=== PATIENT | female | born 1960 | race Caucasian/White ===

== ENCOUNTER 2017-11-16 22:22 | Emergency (ER) | payer OTHER ==
--- NOTE | 2017-11-16 23:19 | EDM.PDOC ---
ED HPI GENERAL MEDICAL PROBLEM - General Chief Complaint: Neurological Problem Stated Complaint: LIGHT HEADED DIZZY Time Seen by Provider: 11/16/17 22:25 Source of Information: Reports: Patient History Limitations: Reports: No Limitations - History of Present Illness INITIAL COMMENTS - FREE TEXT/NARRATIVE: This is a 57-year-old female. She states that she has fumes and her living quarters that it been bothering her for the last 1-2 weeks and apparently it got worse this evening and she comes to the ER for evaluation. She has an air purifier that sounds like it makes ozone and she's been smelling bad as well. This evening she started feeling lightheaded and dizzy and she comes to the ER for evaluation. She doesn't know if she has any open flames in her home. She doesn't know if she uses natural gas for her appliances. She feels confused but she is talking coherently and acting normal. She denies any fever or chills no cough no congestion no nausea vomiting or diarrhea. - Related Data Allergies Allergy/AdvReac Type Severity Reaction Status Date / Time Penicillins Allergy Hives Verified 11/16/17 22:33 Home Meds: Home Meds . [No Known Home Meds] 11/16/17 [History] Past Medical History [employer] History: Reports: Musculoskeletal History: Reports: Back Pain, Chronic, Neck Pain, Chronic - Past Surgical History GI Surgical History: Reports: Appendectomy Female Surgical History: Reports: Tubal Ligation Social & Family History - Family History Family Medical History: Noncontributory - Tobacco Use Smoking Status *Q: Current Every Day Smoker Years of Tobacco use: 45 Packs/Tins Daily: 1 - Caffeine Use Caffeine Use: Reports: None - Recreational Drug Use Recreational Drug Use: No ED ROS GENERAL - Review of Systems Review Of Systems: See Below Constitutional: Denies: Fever, Chills HEENT: Reports: No Symptoms Respiratory: Reports: Shortness of Breath. Denies: Wheezing, Cough Cardiovascular: Denies: Chest Pain Endocrine: Reports: No Symptoms GI/Abdominal: Reports: No Symptoms : Reports: No Symptoms Musculoskeletal: Reports: No Symptoms Skin: Reports: No Symptoms Neurological: Reports: Confusion, Dizziness. Denies: Trouble Speaking, Difficulty Walking Psychiatric: Reports: Anxiety Hematologic/Lymphatic: Reports: No Symptoms ED EXAM, NEURO - Physical Exam Exam: See Below Exam Limited By: No Limitations General Appearance: Alert, WD/WN Eye Exam: Bilateral Eye: Normal Inspection Ears: Normal External Exam Nose: Normal Inspection Throat/Mouth: Normal Inspection, Normal Lips, Normal Voice, No Airway Compromise Head Exam: Normocephalic Neck: Supple Respiratory/Chest: No Respiratory Distress, Lungs Clear, Normal Breath Sounds Cardiovascular: Regular Rate, Rhythm, No Murmur GI/Abdominal: Soft Neurological: Alert, CN II-XII Intact, Oriented x 3 Back Exam: Normal Inspection, Full Range of Motion Extremities: Normal Inspection, Normal Range of Motion Psychiatric: Anxious Skin Exam: Warm, Dry EKG INTERPRETATION EKG Date: 11/16/17 Time: 23:08 EKG Interpretation Comments: Normal sinus rhythm rate of 68, there is no acute ST or T-wave changes and there are no acute ischemia noted, she does have an atrial premature complex noted. Course - Vital Signs Last Recorded V/S: Last Vital Signs Temp 98.0 F 11/16/17 22:27 Pulse 91 11/16/17 22:27 Resp 16 11/16/17 22:27 BP 142/86 H 11/16/17 22:27 Pulse Ox 98 11/16/17 22:27 - Orders/Labs/Meds Orders: Active Orders 24 hr Category Date Time Status EKG 12 Lead [EKG Documentation Completion] [RC] STAT Care 11/16/17 22:56 Active CXR [Chest 1V Frontal] [CR] Stat Exams 11/16/17 22:56 Taken Labs: Laboratory Tests 11/16/17 11/16/17 11/16/17 Range/Units 22:50 23:02 23:02 WBC 9.13 (3.98-10.04) K/mm3 RBC 4.86 (3.98-5.22) M/mm3 Hgb 14.2 (11.2-15.7) gm/L Hct 40.9 (34.1-44.9) % MCV 84.2 (79.4-94.8) fl MCH 29.2 (25.6-32.2) pg MCHC 34.7 (32.2-35.5) g/dl RDW Std Deviation 40.9 (36.4-46.3) fL Plt Count 288 (182-369) K/mm3 MPV 9.5 (9.4-12.3) fl Neut % (Auto) 64.3 (34.0-71.1) % Lymph % (Auto) 28.1 (19.3-51.7) % Mchenry % (Auto) 6.5 (4.7-12.5) % Eos % (Auto) 0.7 (0.7-5.8) Baso % (Auto) 0.2 (0.1-1.2) % Neut # (Auto) 5.87 (1.56-6.13) K/mm3 Lymph # (Auto) 2.57 (1.18-3.74) K/mm3 Mchenry # (Auto) 0.59 H (0.24-0.36) K/mm3 Eos # (Auto) 0.06 (0.04-0.36) K/mm3 Baso # (Auto) 0.02 (0.01-0.08) K/mm3 ABG Carboxyhemoglobin 5.6 H (0.00-1.50) %THgb Sodium 141 (136-145) mEq/L Potassium 3.0 L (3.5-5.1) mEq/L Chloride 104 (98-107) mEq/L Carbon Dioxide 24 (21-32) mEq/L Anion Gap 16.0 H (5-15) BUN 5 L (7-18) mg/dL Creatinine 0.8 (0.55-1.02) mg/dL Est Cr Clr Drug Dosing 73.51 mL/min Estimated GFR (MDRD) > 60 (>60) mL/min BUN/Creatinine Ratio 6.3 L (14-18) Glucose 120 H (74-106) mg/dL Calcium 9.2 (8.5-10.1) mg/dL Total Bilirubin 0.4 (0.2-1.0) mg/dL AST 25 (15-37) U/L ALT 27 (14-59) U/L Alkaline Phosphatase 124 H (46-116) U/L Total Protein 7.2 (6.4-8.2) g/dl Albumin 3.8 (3.4-5.0) g/dl Globulin 3.4 gm/dL Albumin/Globulin Ratio 1.1 (1-2) - Radiology Interpretation Free Text/Narrative:: Chest x-ray does not show any acute changes. - Re-Assessments/Exams Free Text/Narrative Re-Assessment/Exam: 11/17/17 01:14 I spoke to the patient regarding her carboxyhemoglobin of 5.6 that this could be related to her smoking or could be related to a few minutes and her home. She now indicates that she spilled some tire fix her in her car and even though she tried to clean it up whenever she drives her car she feels funny. I suggested she call the fire department and have them evaluate her dwelling for any sort of fumes or additional carbon monoxide monitoring. She is to follow-up with her family doctor this coming week for recheck. Departure - Departure Time of Disposition: :19 Disposition: Home, Self-Care 01 Condition: Fair Clinical Impression: Carboxyhemoglobinemia Qualifiers: Encounter type: initial encounter Injury intent: undetermined intent Qualified Code(s): T58.94XA - Toxic effect of carbon monoxide from unspecified source, undetermined, initial encounter - Discharge Information *PRESCRIPTION DRUG MONITORING PROGRAM REVIEWED*: Not Applicable *COPY OF PRESCRIPTION DRUG MONITORING REPORT IN PATIENT NATALIA: Not Applicable Referrals: PCP,None [Primary Care Provider] - Forms: ED Department Discharge Additional Instructions: You need to call the fire department and have them evaluate your dwelling for any additional fumes or carbon monoxide, you need to cut back extensively on your cigarette smoking, [facility] continue, return to the ER if needed - My Orders Last 24 Hours: My Active Orders 11/16/17 22:56 EKG 12 Lead [EKG Documentation Completion] [RC] STAT CXR [Chest 1V Frontal] [CR] Stat - Assessment/Plan Last 24 Hours: My Active Orders 11/16/17 22:56 EKG 12 Lead [EKG Documentation Completion] [RC] STAT CXR [Chest 1V Frontal] [CR] Stat
--- NOTE | 2017-11-18 10:51 | CR ---
Chest: Portable view of the chest was obtained. Comparison: No prior chest x-ray. Heart size and mediastinum are within normal limits. Lungs are clear with no acute parenchymal change. Bony structures are grossly intact. Impression: 1. Nothing acute is appreciated on portable chest x-ray. Diagnostic code #1
== END 2017-11-17 01:30 | disposition home or self-care (01) ==
LOC: JD.ED 22:22
DX: T58.91XA Toxic effect of carbon monoxide from unspecified source, accidental (unintentional), initial encounter (principal); R42 Dizziness and giddiness; F17.210 Nicotine dependence, cigarettes, uncomplicated; Z88.0 Allergy status to penicillin
CPT/HCPCS: 36415; 71045; 71045-26; 80053; 82375; 85025; 93005; 99284; 99284-25